=== PATIENT | female | born 1960 | race Caucasian/White ===

== ENCOUNTER 2020-09-23 06:26 | Emergency (ER) | payer OTHER, MEDICARE ==
--- NOTE | 2020-09-23 07:10 | EDM.PDOC ---
ED HPI GENERAL MEDICAL PROBLEM - General Chief Complaint: Gastrointestinal Problem Stated Complaint: UTI Time Seen by Provider: 09/23/20 06:59 - History of Present Illness INITIAL COMMENTS - FREE TEXT/NARRATIVE: 60-year-old female with a history of diabetes not on insulin who is presenting with 1 week of urinary frequency dysuria bilateral flank aching nausea generalized weakness and malaise. Symptoms have been constant and gradually progressive the flank pain is bilateral aching it is not sharp or sudden or waxing and waning. No hematuria. No exacerbating or alleviating factors radiation or other associated symptoms. R flank Pain Score (Numeric/FACES): 8 - Related Data Allergies Allergy/AdvReac Type Severity Reaction Status Date / Time Penicillins Allergy Rash Verified 09/23/20 07:07 sulfamethoxazole Allergy Airway Verified 09/23/20 07:07 [From Bactrim] Tightness trimethoprim [From Bactrim] Allergy Airway Verified 09/23/20 07:07 Tightness Home Meds: Home Meds Insulin NPH Hum/Reg Insulin Hm [Novolin 70-30 100 Unit/ml Vial] 60 units SQ BID 09/23/20 [History] Venlafaxine HCl [Venlafaxine ER] 250 mg PO DAILY 09/23/20 [History] metFORMIN [Glucophage XR] 500 mg PO DAILY 09/23/20 [History] ED ROS GENERAL - Review of Systems Review Of Systems: See Below Free Text/Narrative/Comment: General: Per HPI Skin: No rash. ENT: No sore throat. Neck: No neck stiffness. Respiratory: No shortness of breath. Cardiac: No chest pain. Gastrointestinal: Per HPI Urinary: Per HPI Musculoskeletal: No myalgias/arthralgias. Neurologic: No headache. ED EXAM, GENERAL - Physical Exam Exam: See Below Free Text/Narrative:: General Appearance: No acute distress, appears comfortable Skin: No rash HEENT: Normocephalic/atraumatic, sclera anicteric, mucous membranes moist Neck: Normal range of motion Chest and Lungs: Bilateral breath sounds, clear to auscultation Cardiovascular: Regular rate and rhythm, no murmur Abdomen: Soft, non-tender Back: Normal Musculoskeletal: No edema or tenderness Neurologic: Awake, alert, no obvious deficits, moving all extremities Psychiatric: Appropriate, cooperative Course - Vital Signs Last Recorded V/S: Last Vital Signs Temp 97.6 F 09/23/20 07:03 Pulse 85 09/23/20 07:03 Resp 18 09/23/20 07:03 BP 206/75 H 09/23/20 07:03 Pulse Ox 96 09/23/20 07:03 - Orders/Labs/Meds Orders: Active Orders 24 hr Category Date Time Status Abdomen Pelvis w Cont [CT] Stat Exams 09/23/20 07:44 Stop Req Labs: Laboratory Tests 09/23/20 09/23/20 09/23/20 Range/Units 06:42 07:49 07:49 WBC 9.28 (4.0-11.0) K/uL RBC 5.38 (4.30-5.90) M/uL Hgb 14.9 (12.0-16.0) g/dL Hct 43.9 (36.0-46.0) % MCV 81.6 (80.0-98.0) fL MCH 27.7 (27.0-32.0) pg MCHC 33.9 (31.0-37.0) g/dL RDW Std Deviation 39.9 (28.0-62.0) fl RDW Coeff of Shadi 14 (11.0-15.0) % Plt Count 202 (150-400) K/uL MPV 10.80 (7.40-12.00) fL Add Manual Diff YES Neutrophils % (Manual) 58 (48.0-80.0) % Lymphocytes % (Manual) 29 (16.0-40.0) % Monocytes % (Manual) 11 (0.0-15.0) % Eosinophils % (Manual) 2 (0.0-7.0) % Absolute Seg Neuts 5.4 (1.4-5.7) Lymphocytes # (Manual) 2.7 H (0.6-2.4) Monocytes # (Manual) 1.0 H (0.0-0.8) Eosinophils # (Manual) 0.2 (0.0-0.7) Sodium 140 (136-145) mmol/L Potassium 4.0 (3.5-5.1) mmol/L Chloride 105 (98-107) mmol/L Carbon Dioxide 25.5 (21.0-32.0) mmol/L BUN 15 (7.0-18.0) mg/dL Creatinine 0.9 (0.6-1.0) mg/dL Est Cr Clr Drug Dosing 67.05 mL/min Estimated GFR (MDRD) > 60.0 ml/min Glucose 278 H (74-106) mg/dL Calcium 8.9 (8.5-10.1) mg/dL Total Bilirubin 0.4 (0.2-1.0) mg/dL AST 31 (15-37) IU/L ALT 58 (14-63) IU/L Alkaline Phosphatase 102 (46-116) U/L Total Protein 7.8 (6.4-8.2) g/dL Albumin 3.4 (3.4-5.0) g/dL Globulin 4.4 H (2.6-4.0) g/dL Albumin/Globulin Ratio 0.8 L (0.9-1.6) Lipase 211 (73-393) U/L Urine Color YELLOW Urine Appearance CLEAR Urine pH 6.0 (5.0-8.0) Ur Specific [place] 1.025 (1.001-1.035) Urine Protein NEGATIVE (NEGATIVE) mg/dL Urine Glucose (UA) 500 H (NEGATIVE) mg/dL Urine Ketones NEGATIVE (NEGATIVE) mg/dL Urine Occult Blood NEGATIVE (NEGATIVE) Urine Nitrite NEGATIVE (NEGATIVE) Urine Bilirubin NEGATIVE (NEGATIVE) Urine Urobilinogen 0.2 (<2.0) EU/dL Ur Leukocyte Esterase NEGATIVE (NEGATIVE) Urine RBC 0-1 (0-2/HPF) Urine WBC 0-1 (0-5/HPF) Ur Epithelial Cells RARE (NONE-FEW) Urine Bacteria 1+ H (NEGATIVE) Departure - Departure Time of Disposition: 08:23 Disposition: Home, Self-Care 01 Condition: Good Clinical Impression: Flank pain - Discharge Information *PRESCRIPTION DRUG MONITORING PROGRAM REVIEWED*: Not Applicable *COPY OF PRESCRIPTION DRUG MONITORING REPORT IN PATIENT SAMUEL: Not Applicable Instructions: Flank Pain, Adult, [id number] Referrals: Cruz Damon MD [Primary Care Provider] - 2 Days Forms: ED Department Discharge Additional Instructions: As we discussed your labs today are good you do not have a urinary tract infection. Please be sure to follow-up with your primary care doctor early next week. If you develop a fever or severe pain or any other new or worsening symptoms please call your doctor right away or return to the ER. The following information is given to patients seen in the emergency department who are being discharged to home. This information is to outline your options for follow-up care. We provide all patients seen in our emergency department with a follow-up referral. The need for follow-up, as well as the timing and circumstances, are variable depending upon the specifics of your emergency department visit. If you don't have a primary care physician on staff, we will provide you with a referral. We always advise you to contact your personal physician following an emergency department visit to inform them of the circumstance of the visit and for follow-up with them and/or the need for any referrals to a consulting specialist. The emergency department will also refer you to a specialist when appropriate. This referral assures that you have the opportunity for follow-up care with a specialist. All of these measure are taken in an effort to provide you with optimal care, which includes your follow-up. Under all circumstances we always encourage you to contact your private physician who remains a resource for coordinating your care. When calling for follow-up care, please make the office aware that this follow-up is from your recent emergency room visit. If for any reason you are refused follow-up, please contact the [facility] Emergency Department at and asked to speak to the emergency department charge nurse. Sepsis Event Note (ED) - Evaluation Sepsis Screening Result: No Definite Risk - Focused Exam Vital Signs: Vital Signs Temp Pulse Resp BP Pulse Ox 09/23/20 07:03 97.6 F 85 18 206/75 H 96 - My Orders Last 24 Hours: My Active Orders 09/23/20 07:44 Abdomen Pelvis w Cont [CT] Stat - Assessment/Plan Last 24 Hours: My Active Orders 09/23/20 07:44 Abdomen Pelvis w Cont [CT] Stat Assessment:: Nontoxic-appearing 60-year-old female presenting with signs and symptoms that are most consistent with UTI potentially pyelonephritis given flank discomfort. However patient clinically well on exam afebrile not tachycardic no signs of sepsis. No abdominal tenderness or primary GI symptoms that would suggest diverticulitis or appendicitis or biliary pathology. Patient does not have severe unilateral flank pain I think renal colic or infected stone is very unlikely. Given flank pain CBC and BMP added to assess renal function and white blood cell count in addition to UA. Patient reports a mild rash to penicillin when she was 5. Given this and her Bactrim allergy, she does not need require antibiotics I think a trial of Keflex would be reasonable. 0745: Pt's UA is without any signs of infection, on reassessment pt with RUQ tenderness, given this and neg UA must more seriously consider intraabdominal pathology. CMP, lipase and ct a/p ordered. 0825: Patient's labs are unremarkable normal white count normal liver and renal function. Patient has a high deductible insurance plan and she has a strong desire to avoid any imaging today. She is currently declining the CT scan. Patient's vital signs are normal she is afebrile. She is status post cholecystectomy. We discussed that her labs are reassuring but I cannot exclude some other potentially serious medical condition without additional testing. Patient expresses understanding of this. Patient will follow up with her primary care provider early next week. She agrees to return for any new or worsening symptoms.
[2020-09-23 08:13] LABS: BLOOD UREA NITROGEN,BUN 15 mg/dL (7.0-18.0); CARBON DIOXIDE,CO2 25.5 mmol/L (21.0-32.0); CHLORIDE,CL 105 mmol/L (98-107); GLUCOSE RANDOM 278 mg/dL (74-106); LIPASE 211 U/L (73-393); SODIUM,NA 140 mmol/L (136-145)
== END 2020-09-23 09:01 | disposition home or self-care (01) ==
LOC: MW.ED 06:26
DX: R10.9 Unspecified abdominal pain (principal); E11.9 Type 2 diabetes mellitus without complications; Z79.4 Long term (current) use of insulin; Z88.0 Allergy status to penicillin; Z88.1 Allergy status to other antibiotic agents
CPT/HCPCS: 36415; 80053; 81001; 83690; 85025; 99283; 99284

== ENCOUNTER 2021-06-09 12:22 | Emergency (ER) | payer OTHER, MEDICARE ==
--- NOTE | 2021-06-09 12:42 | EDM.PDOC ---
ED HPI GENERAL MEDICAL PROBLEM - General Chief Complaint: Genitourinary Problem Stated Complaint: UTI Time Seen by Provider: 06/09/21 12:26 - History of Present Illness INITIAL COMMENTS - FREE TEXT/NARRATIVE: History of present illness: [] Patient started having a cough and upper respiratory congestion about 9 days ago on 31 May. Shortly thereafter she began to have dysuria. Her appetite not good but she not vomiting and not having diarrhea. She does have congestion and cough and feels like she has chills but no fever. She also has right upper quadrant pain and flank pain on both sides. She has had her gallbladder removed Review of systems: As per history of present illness and below otherwise all systems reviewed and negative. Past medical history: As per history of present illness and as reviewed below otherwise noncontributory. Surgical history: As per history of present illness and as reviewed below otherwise noncontributory. Social history: No reported history of drug or alcohol abuse. Family history: As per history of present illness and as reviewed below otherwise noncontributory. Physical exam: Constitutional - well developed, well-nourished and in no acute distress HEENT - normocephalic, no evidence of trauma - external nose and mouth normal - no mass in neck and no JVD - mucosae moist EYES - full EOM, PERRL, no icterus - no evidence of inflammation, injection, or drainage Respiratory - no respiratory distress, equal bilateral expansion, lungs clear to auscultation and no abnormal lung sounds Cardiovascular - Regular Rhythm with S1 and S2 appreciated and no murmur, gallop or rub. GI - abdomen soft without distension or organomegaly - normal bowel sounds - no guard or rebound Musculoskeletal no gross deformity of long bones or joints - no tenderness, swelling or edema Neurologic - Alert and oriented times four - CN II-XII grossly intact - motor sensory and coordination symmetrically normal Psychiatric - appropriate mood and affect with normal thought content Hematologic - No petechiae or purpura - mucosa appropriate color and sclera not pale - normal nail bed color and refill Integument - no rash or evidence of trauma - normal turgor Diagnostics: [] Therapeutics: [] Impression: [] Plan: [] Definitive disposition and diagnosis as appropriate pending reevaluation and review of above. general body aches Pain Score (Numeric/FACES): 10 - Related Data Allergies Allergy/AdvReac Type Severity Reaction Status Date / Time Penicillins Allergy Rash Verified 06/09/21 12:36 sulfamethoxazole Allergy Airway Verified 06/09/21 12:36 [From Bactrim] Tightness trimethoprim [From Bactrim] Allergy Airway Verified 06/09/21 12:36 Tightness Home Meds: Home Meds Insulin NPH Hum/Reg Insulin Hm [Novolin 70-30 100 Unit/ml Vial] 60 units SQ BID 09/23/20 [History] Venlafaxine HCl [Venlafaxine ER] 250 mg PO DAILY 09/23/20 [History] metFORMIN [Glucophage XR] 500 mg PO DAILY 09/23/20 [History] Past Medical History Cardiovascular History: Reports: Hypertension MANAGER MATERIAL History: Reports: Neurological History: Reports: TIA, Other (See Below) Other Neuro History: "multiple brain bleeds" Endocrine/Metabolic History: Reports: Diabetes, Type II - Infectious Disease History Infectious Disease History: Reports: Chicken Pox, Measles, Mumps - Past Surgical History HEENT Surgical History: Reports: Naso-Sinus Surgery, Tonsillectomy GI Surgical History: Reports: Cholecystectomy Female Surgical History: Reports: Hysterectomy Social & Family History - Family History Family Medical History: No Pertinent Family History - Caffeine Use Caffeine Use: Reports: Coffee ED ROS GENERAL - Review of Systems Review Of Systems: Comprehensive ROS is negative, except as noted in HPI. ED EXAM, GENERAL - Physical Exam Exam: See Below Free Text/Narrative:: My physical exam is in the HPI Course - Vital Signs Last Recorded V/S: Last Vital Signs Temp 35.4 C L 06/09/21 12:36 Pulse 81 06/09/21 12:36 Resp 18 06/09/21 12:36 BP 206/73 H 06/09/21 12:36 Pulse Ox 94 L 06/09/21 12:36 - Orders/Labs/Meds Orders: Active Orders 24 hr Category Date Time Status CULTURE URINE [MREF] Stat Lab 06/09/21 13:30 Received Labs: Laboratory Tests 06/09/21 06/09/21 Range/Units 12:30 12:41 Urine Color YELLOW Urine Appearance CLOUDY Urine pH 6.0 (5.0-8.0) Ur Specific [place] 1.025 (1.001-1.035) Urine Protein TRACE H (NEGATIVE) mg/dL Urine Glucose (UA) 500 H (NEGATIVE) mg/dL Urine Ketones NEGATIVE (NEGATIVE) mg/dL Urine Occult Blood MODERATE H (NEGATIVE) Urine Nitrite NEGATIVE (NEGATIVE) Urine Bilirubin NEGATIVE (NEGATIVE) Urine Urobilinogen 0.2 (<2.0) EU/dL Ur Leukocyte Esterase MODERATE H (NEGATIVE) Urine RBC 20-30 (0-2/HPF) Urine WBC 40-50 (0-5/HPF) Ur Epithelial Cells RARE (NONE-FEW) Urine Bacteria 2+ H (NEGATIVE) Influenza Type A RNA NEGATIVE (NEGATIVE) Influenza Type B RNA NEGATIVE (NEGATIVE) SARS-CoV-2 RNA (VICENTE) NEGATIVE (NEGATIVE) Departure - Departure Time of Disposition: 13:36 Disposition: Home, Self-Care 01 Condition: Good Clinical Impression: UTI, Urinary tract infectious disease, Upper respiratory infection, acute - Discharge Information Instructions: Urinary Tract Infection, Adult, Viral Respiratory Infection Referrals: Cruz Damon MD [Primary Care Provider] - Forms: ED Department Discharge Additional Instructions: You have a urinary tract infection. The antibiotic prescription was sent to [facility] Increase fluids. Get plenty of rest. Return if worse. [facility] [address] [place] [address] [place] [address] The following information is given to patients seen in the emergency department who are being discharged to home. This information is to outline your options for follow-up care. We provide all patients seen in our emergency department with a follow-up referral. The need for follow-up, as well as the timing and circumstances, are variable depending upon the specifics of your emergency department visit. If you don't have a primary care physician on staff, we will provide you with a referral. We always advise you to contact your personal physician following an emergency department visit to inform them of the circumstance of the visit and for follow-up with them and/or the need for any referrals to a consulting specialist. The emergency department will also refer you to a specialist when appropriate. This referral assures that you have the opportunity for follow-up care with a specialist. All of these measure are taken in an effort to provide you with optimal care, which includes your follow-up. Under all circumstances we always encourage you to contact your private physician who remains a resource for coordinating your care. When calling for follow-up care, please make the office aware that this follow-up is from your recent emergency room visit. If for any reason you are refused follow-up, please contact the [facility] Emergency Department at and asked to speak to the emergency department charge nurse. Sepsis Event Note (ED) - Evaluation Sepsis Screening Result: No Definite Risk - Focused Exam Vital Signs: Vital Signs Temp Pulse Resp BP Pulse Ox 06/09/21 12:36 35.4 C L 81 18 206/73 H 94 L - My Orders Last 24 Hours: My Active Orders 06/09/21 13:30 CULTURE URINE [MREF] Stat - Assessment/Plan Last 24 Hours: My Active Orders 06/09/21 13:30 CULTURE URINE [MREF] Stat
[2021-06-09 13:27] LABS: CORONAVIRUS COVID-19 NAA NEGATIVE (NEGATIVE); INFLUENZA A NAA NEGATIVE (NEGATIVE); INFLUENZA B NAA NEGATIVE (NEGATIVE)
== END 2021-06-09 13:49 | disposition home or self-care (01) ==
LOC: MW.ED 12:22
DX: N39.0 Urinary tract infection, site not specified (principal); J06.9 Acute upper respiratory infection, unspecified; I10 Essential (primary) hypertension; E11.9 Type 2 diabetes mellitus without complications; Z86.73 Personal history of transient ischemic attack (TIA), and cerebral infarction without residual deficits; Z79.4 Long term (current) use of insulin; Z88.0 Allergy status to penicillin; Z88.1 Allergy status to other antibiotic agents; Z20.822 Contact with and (suspected) exposure to COVID-19
CPT/HCPCS: 0240U; 81001; 87086; 87088; 87186; 99283

== ENCOUNTER 2021-07-03 23:10 | Emergency (ER) | payer OTHER, MEDICARE ==
[2021-07-03] MEDS ORDERED: Sodium Chloride 0.9% 2.5 ML Syringe FLUSH PRN (23:16)
[2021-07-03] MEDS ORDERED: Sodium Chloride 0.9% 10 ML Syringe FLUSH PRN (23:16)
[2021-07-03 23:49] LABS: POTASSIUM,K 4.1 mmol/L (3.5-5.1)
[2021-07-03] MEDS ORDERED: Aspirin 81 MG Tab.Chew PO ONE (23:50)
[2021-07-04 00:04] LABS: CORONAVIRUS COVID-19 NAA NEGATIVE (NEGATIVE); INFLUENZA A NAA NEGATIVE (NEGATIVE); INFLUENZA B NAA NEGATIVE (NEGATIVE); RESPIRATORY SYNCYTIAL VIR NAA NEGATIVE (NEGATIVE)
[2021-07-04] MEDS ORDERED: Iopamidol 755 MG/ML 500 ML Multipack Bottle IVPUSH STA ×2 (00:48→00:50)
[2021-07-04] MEDS ORDERED: Heparin Sodium 5,000 Units/ML Vial IVPUSH ONE (02:49)
[2021-07-04] MEDS ORDERED: Heparin Sodium/0.45% NaCl 500 ML IV SCH (03:00)
== END 2021-07-04 04:05 ==
LOC: MW.ED 23:10
DX: I21.4 Non-ST elevation (NSTEMI) myocardial infarction (principal); J96.01 Acute respiratory failure with hypoxia; I11.0 Hypertensive heart disease with heart failure; I50.9 Heart failure, unspecified; E11.10 Type 2 diabetes mellitus with ketoacidosis without coma; Z88.0 Allergy status to penicillin; Z88.1 Allergy status to other antibiotic agents; Z79.4 Long term (current) use of insulin; Z86.73 Personal history of transient ischemic attack (TIA), and cerebral infarction without residual deficits; Z72.0 Tobacco use; Z20.822 Contact with and (suspected) exposure to COVID-19
CPT/HCPCS: 0241U; 36415; 71045; 71275; 80053; 83605; 83735; 83880; 84484; 85025; 85610; 85730; 93005; 96365; 99285; A9270; J1644; Q9967

== ENCOUNTER 2021-10-15 15:49 | Emergency (ER) | payer OTHER, MEDICARE ==
[2021-10-15] MEDS ORDERED: Morphine 4 MG/ML VIAL IVPUSH ONE (17:33)
[2021-10-15 19:15] LABS: CARBON DIOXIDE,CO2 25.1 mmol/L (21.0-32.0); POTASSIUM,K 3.2 mmol/L (3.5-5.1)
== END 2021-10-15 19:58 | disposition home or self-care (01) ==
LOC: MW.ED 15:49
DX: E87.6 Hypokalemia (principal); M54.2 Cervicalgia; M54.9 Dorsalgia, unspecified; M25.511 Pain in right shoulder; I10 Essential (primary) hypertension; E11.9 Type 2 diabetes mellitus without complications; Z90.49 Acquired absence of other specified parts of digestive tract; Z90.710 Acquired absence of both cervix and uterus; Z88.0 Allergy status to penicillin; Z88.2 Allergy status to sulfonamides; Z79.4 Long term (current) use of insulin; Z79.899 Other long term (current) drug therapy
CPT/HCPCS: 36415; 71045; 80053; 83735; 84484; 85025; 93005; 96374; 99284; J2270; 99283

== ENCOUNTER 2021-10-18 19:25 | Emergency (ER) | payer OTHER, MEDICARE ==
[2021-10-18] MEDS ORDERED: Sodium Chloride 0.9% 10 ML Syringe FLUSH PRN (19:33)
[2021-10-18] MEDS ORDERED: Sodium Chloride 0.9% 2.5 ML Syringe FLUSH PRN (19:33)
[2021-10-18] MEDS ORDERED: Lactated Ringers 1,000 ML IV STA ×2 (19:44→19:58)
[2021-10-18 20:30] LABS: BLOOD UREA NITROGEN,BUN 52 mg/dL (7.0-18.0); CARBON DIOXIDE,CO2 21.1 mmol/L (21.0-32.0); CHLORIDE,CL 96 mmol/L (98-107); GLUCOSE RANDOM 183 mg/dL (74-106); POTASSIUM,K 3.7 mmol/L (3.5-5.1); SODIUM,NA 130 mmol/L (136-145)
[2021-10-18] MEDS ORDERED: Aspirin 81 MG Tab.Chew PO ONE (20:37)
[2021-10-18] MEDS ORDERED: Magnesium Sulfate/Water 2 GM in Premix Bag 1 BAG IV ONE (20:38)
[2021-10-18 21:06] LABS: ACETAMINOPHEN <2.0 ug/mL
[2021-10-18] MEDS ORDERED: cefTRIAXone 1 GM in Sodium Chloride 0.9% 50 ML IV ONE (21:07)
[2021-10-18] MEDS ORDERED: Morphine 4 MG/ML VIAL IVPUSH STA (22:47)
[2021-10-18] MEDS ORDERED: Iopamidol 755 MG/ML 500 ML Multipack Bottle IVPUSH STA (23:25)
[2021-10-19 02:43] LABS: BLOOD UREA NITROGEN,BUN 54 mg/dL (7.0-18.0); CARBON DIOXIDE,CO2 20.5 mmol/L (21.0-32.0); CHLORIDE,CL 97 mmol/L (98-107); GLUCOSE RANDOM 199 mg/dL (74-106); SODIUM,NA 130 mmol/L (136-145)
[2021-10-19] MEDS ORDERED: Albumin 25% 12.5 GM/50 ML Bag IV ONE (03:59)
[2021-10-19] MEDS ORDERED: Lactated Ringers 1,000 ML IV STA ×2 (04:02→04:03)
[2021-10-19] MEDS ORDERED: Albumin 25% 12.5 GM/50 ML BAG IV ONE (04:19)
[2021-10-19 06:30] LABS: BLOOD UREA NITROGEN,BUN 55 mg/dL (7.0-18.0); CARBON DIOXIDE,CO2 21.4 mmol/L (21.0-32.0); CHLORIDE,CL 97 mmol/L (98-107); GLUCOSE RANDOM 192 mg/dL (74-106); POTASSIUM,K 4.2 mmol/L (3.5-5.1); SODIUM,NA 131 mmol/L (136-145)
[2021-10-19] MEDS ORDERED: VANCOmycin 2 GM/400 ML 2 GM in Premix Bag 1 BAG IV ONE (06:45)
== END 2021-10-19 11:40 ==
LOC: MW.ED 19:25
DX: I63.9 Cerebral infarction, unspecified (principal); N39.0 Urinary tract infection, site not specified; K72.00 Acute and subacute hepatic failure without coma; N19 Unspecified kidney failure; J96.01 Acute respiratory failure with hypoxia; I71.9 Aortic aneurysm of unspecified site, without rupture; E87.2 Acidosis; I11.0 Hypertensive heart disease with heart failure; I50.9 Heart failure, unspecified; D69.6 Thrombocytopenia, unspecified; R77.8 Other specified abnormalities of plasma proteins; E83.42 Hypomagnesemia; E11.9 Type 2 diabetes mellitus without complications; Z88.0 Allergy status to penicillin; Z88.1 Allergy status to other antibiotic agents; Z79.4 Long term (current) use of insulin; Z20.822 Contact with and (suspected) exposure to COVID-19; Z86.73 Personal history of transient ischemic attack (TIA), and cerebral infarction without residual deficits
CPT/HCPCS: 36415; 51702; 70450; 71045; 71250; 71275; 74176; 76705; 80048; 80053; 80143; 81001; 82550; 82947; 83605; 83735; 83880; 84484; 85014; 85018; 85025; 85610; 86850; 86900; 86901; 87040; 87077; 87086; 87154; 87186; 87635; 93005; 96365; 96366; 96367; 96368; 96375; 99291; 99292; A9270; J0696; J2270; J3370; J3475; J3490; J7120; P9047; Q9967; 87088; 93010; U0002